=== PATIENT | female | born 1985 | race Caucasian/White ===

== ENCOUNTER 2022-10-20 10:04 | Inpatient (IN) ==
[2022-10-20] MEDS ORDERED: Lactated Ringers 1000 ml BAG 1,000 ML IV ONE (10:17)
[2022-10-20] MEDS ORDERED: Buffered Lidocaine 1% SYRIN 1 ml INTRADERM ONE (10:17)
[2022-10-20 11:00] LABS: Urine Benzodiazepine Screen None Detected (None Detect); Urine Cannabinoids Screen None Detected (None Detect); Urine Opiates Screen None Detected (None Detect)
[2022-10-20] MEDS ORDERED: Lactated Ringers 1000 ml BAG 1,000 ML IV SCH ×2 (11:00→13:00)
[2022-10-20] MEDS ORDERED: Dibucaine 1% OINT 28.35 GM TUBE PR PRN (12:06)
[2022-10-20] MEDS ORDERED: Glycerin ADULT 2.4 gm SUPP PR PRN (12:06)
[2022-10-20] MEDS ORDERED: Witch Hazel PAD JAR TOPICAL PRN (12:06)
[2022-10-20] MEDS ORDERED: Tetan/Diph/Pertus SYR(Tdap) 0.5 ML SYR(BOOSTRIX) use SYR contains LATEX IM ONE (13:18)
[2022-10-21 07:02] LABS: ABS Lymphocytes 1.7 10^3/uL (1.0-4.8); ABS Monocytes 0.5 10^3/uL (0.0-0.9); ABS Neutrophils 9.3 10^3/uL (1.5-7.6); Eosinophil % 0.3 %; Hematocrit 38.3 % (35-45); Hemoglobin 13.6 g/dL (11.5-14.3); Lymphocyte % 15.1 %; Mean Corpuscular Hemoglobin 31.4 pg (27-33); Mean Corpuscular Hgb Conc 35.4 g/dL (31-36); Mean Corpuscular Volume 88.6 fL (80-97); Mean Platelet Volume 9.6 fL (7.5-11.2); Platelet Count 149 10^3/uL (150-450); Red Blood Count 4.32 10^6/uL (3.63-4.92); Red Cell Distribution Width 13.7 % (12-17); White Blood Count 11.6 10^3/uL (3.8-11.8)
[2022-10-21 08:04] VITALS: BP 95/61
== END 2022-10-21 14:33 | disposition home or self-care (01) | DRG 807 ==
LOC: MCHOBOUT 10:04 → MCHOB 10:10
PROVIDERS: ADMIT Midwife; ATTEND Midwife